=== PATIENT | male | born 1955 | race Caucasian/White ===

== ENCOUNTER 2018-11-18 11:47 | Emergency (ER) | payer OTHER ==
--- NOTE | 2018-11-18 12:00 | EDPHY ---
H & P Time Seen by Provider: 11/18/18 11:59 HPI/ROS: CHIEF COMPLAINT: Numbness and tingling in the left hand HISTORY OF PRESENT ILLNESS: Patient was riding exercise bicycle at home. He recently lost 40 lb and then gained 20 back so was on the bicycle trying to lose weight again. At around 9:30 a.m. He started feeling numbness and tingling on the left hand he says mostly in the ring finger and a little bit in the small finger. He felt dizzy got off the bicycle and ate and drank and these symptoms were intermittent since then but when I evaluate him it is completely gone. Did not have chest pain or shortness of breath or headache, no difficulty with vision speech strength or sensation in other extremities. He was worried about his heart. He said he had difficulty putting his left contact lens in for about 15 min because although he could move his middle finger okay with a contact on it he had trouble retracting his eyelid with his ring and small fingers. REVIEW OF SYSTEMS: Eye: no change in vision ENT: no sore throat Cardiac: no chest pain or syncope Pulmonary: no cough or SOB Abdomen: no vomiting, diarrhea, abdominal pain Musculoskeletal: No neck pain. Skin: no rash Neuro: HPI no headache Constitutional: no fever : no urinary symptoms A comprehensive 10 point review of systems is otherwise negative aside from elements mentioned in the history of present illness. PAST MEDICAL HISTORY: Includes hypertension high cholesterol and GERD. Social history: Nonsmoker General Appearance: Alert and conversant, cooperative. Eyes: No scleral icterus. ENT, Mouth: Normal mucous membranes. Respiratory: Normal respiratory effort, breath sounds equal, lungs are clear to auscultation. Cardiovascular: Regular rate and rhythm. Gastrointestinal: Abdomen is soft and non tender. Neurological: Alert, face symmetric, normal motor and sensory in extremities. Right now he has normal strength sensation in deltoids, triceps, biceps, wrist extensor, intrinsics in both hands. Normal sensation to light touch in radial ulnar and median nerve distribution. Normal motor and sensory in all fingers of both hands at this time. Skin: Warm and dry, no rashes. Musculoskeletal: No peripheral edema. No bony tenderness in the left hand and full flexion extension of all fingers. Normal capillary refill. Psychiatric: Not agitated. Emergency Department course/MDM: Patient's EKG shows Q-waves in V1 and V2 and the patient says this is old. He has been told in the past with an EKG that his doctor said that he might have had a previous heart attack but as far as he knows that is just an isolated EKG abnormality without any previous history of myocardial infarction. 1305: Discussed with Meseret agrees with diagnosis of probable peripheral nerve problem recommends discharge without further diagnostics. Discussed with the patient more likely due to nerve compression on his bicycle handlebars, unlikely to be acute coronary syndrome or myocardial infarction or TIA or ischemic stroke. Patient would like to go home which I think is reasonable. Smoking Status: Never smoked Constitutional: Initial Vital Signs Temperature (C) 37 C 11/18/18 11:50 Heart Rate 86 11/18/18 11:50 Respiratory Rate 18 11/18/18 11:50 Blood Pressure 156/89 H 11/18/18 11:50 O2 Sat (%) 92 11/18/18 11:50 O2 Delivery Mode Room Air Allergies/Adverse Reactions: No Known Allergies Allergy (Verified 11/18/18 11:49) Home Medications: Medication Instructions Recorded NK [No Known Home Meds] 10/06/16 Medical Decision Making - Diagnostics EKG Interpretation: 12-lead EKG interpreted by me; official reading is in computer system. My interpretation is same as 02/01/2016, a left anterior fascicular block with Q- waves in V1 and V2 - Data Points Laboratory Results: Laboratory Results 11/18/18 12:00 11/18/18 12:00 11/18/18 11/18/18 11/18/18 12:06 12:00 12:00 WBC 9.36 10^3/uL 10^3/uL (3.80-9.50) RBC 4.60 10^6/uL 10^6/uL (4.40-6.38) Hgb 15.5 g/dL g/dL (13.7-17.5) Hct 45.1 % % (40.0-51.0) MCV 98.0 fL fL (81.5-99.8) MCH 33.7 pg pg (27.9-34.1) MCHC 34.4 g/dL g/dL (32.4-36.7) RDW 13.7 % % (11.5-15.2) Plt Count 338 10^3/uL 10^3/uL (150-400) MPV 9.9 fL fL (8.7-11.7) Neut % (Auto) 71.4 % % (39.3-74.2) Lymph % (Auto) 18.8 % % (15.0-45.0) George % (Auto) 7.4 % % (4.5-13.0) Eos % (Auto) 1.3 % % (0.6-7.6) Baso % (Auto) 0.9 % % (0.3-1.7) Nucleat RBC Rel Count 0.0 % % (0.0-0.2) Absolute Neuts (auto) 6.69 10^3/uL H 10^3/uL (1.70-6.50) Absolute Lymphs (auto) 1.76 10^3/uL 10^3/uL (1.00-3.00) Absolute Monos (auto) 0.69 10^3/uL 10^3/uL (0.30-0.80) Absolute Eos (auto) 0.12 10^3/uL 10^3/uL (0.03-0.40) Absolute Basos (auto) 0.08 10^3/uL 10^3/uL (0.02-0.10) Absolute Nucleated RBC 0.00 10^3/uL 10^3/uL (0-0.01) Immature Gran % 0.2 % % (0.0-1.1) Immature Gran # 0.02 10^3/uL 10^3/uL (0.00-0.10) Sodium 137 mEq/L mEq/L (135-145) Potassium 4.9 mEq/L mEq/L (3.5-5.2) Chloride 107 mEq/L mEq/L (97-110) Carbon Dioxide 22 mEq/l mEq/l (22-31) Anion Gap 8 mEq/L mEq/L (6-14) BUN 29 mg/dL H mg/dL (7-23) Creatinine 1.0 mg/dL mg/dL (0.7-1.3) Estimated GFR > 60 Glucose 109 mg/dL H mg/dL (70-100) Calcium 9.3 mg/dL mg/dL (8.5-10.4) POC Troponin I 0.00 ng/mL ng/mL (0.00-0.08) Point of Care Test Results: Chemistry 11/18/18 12:06 POC Troponin I 0.00 ng/mL ng/mL (0.00-0.08) Departure - Departure Disposition: Home, Routine, Self-Care Clinical Impression: Neuropraxia of left upper extremity Qualifiers: Encounter type: initial encounter Qualified Code(s): S44.92XA - Injury of unspecified nerve at shoulder and upper arm level, left arm, initial encounter Condition: Good Instructions: Peripheral Neuropathy (ED), Neurapraxia (ED) Referrals: Emanuel Carl MD [Medical Doctor] - As per Instructions (Follow-up with this neurologist in the office this week if symptoms persist.)
--- NOTE | 2018-11-18 12:30 | CPEKG ---
Test Reason : OPEN Blood Pressure : / mmHG Vent. Rate : 076 BPM Atrial Rate : 076 BPM P-R Int : 188 ms QRS Dur : 100 ms QT Int : 404 ms P-R-T Axes : 049 -58 083 degrees QTc Int : 455 ms Sinus rhythm Left anterior fascicular block Anteroseptal infarct, old Confirmed by Victoriano Hawk ([id number]) on 11/18/2018 12:29:44 PM Referred By: Confirmed By:Victoriano Hawk
[2018-11-18 12:33] LABS: PLATELET COUNT 338 10^3/uL (150-400)
[2018-11-18 13:18] VITALS: BP 157/91
== END 2018-11-18 13:18 | disposition home or self-care (01) ==
DX: S44.92XA Injury of unspecified nerve at shoulder and upper arm level, left arm, initial encounter (principal); I10 Essential (primary) hypertension; E78.00 Pure hypercholesterolemia, unspecified; K21.9 Gastro-esophageal reflux disease without esophagitis; X58.XXXA Exposure to other specified factors, initial encounter; Y93.B9 Activity, other involving muscle strengthening exercises; Y92.9 Unspecified place or not applicable; Y99.9 Unspecified external cause status
CPT/HCPCS: 84484-ER